=== PATIENT | female | born 2005 | race Caucasian/White ===

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

== ENCOUNTER 2023-03-07 19:24 | Emergency (ER) | payer SELFPAY ==
--- NOTE | ~2023-03-07 | XR_ITS ---
EXAMINATION: XR chest 2V Exam Date/Time: 03/07/2023 19:47 CDT HISTORY: chest pain Comparison: None. RESULT: Lines, tubes, and devices: None. Lungs and pleura: Diffuse mild mid and lower lung interstitial opacities, including mild cuffing and Jo B lines. No fissural fluid or effusion. No focal consolidation or pneumothorax. Cardiomediastinal silhouette: Stable. Other: No acute osseous or upper abdominal finding. Ovoid 3.8 cm soft tissue density in the right ax illa. IMPRESSION: Mild interstitial edema versus respiratory bronchiolitis. Possible right axillary mass, such as lymph adenopathy, correlate with physical exam. Reviewed, dictated and finalized at location K. IMPRESSION: Mild interstitial edema versus respiratory bronchiolitis. Possible right axilla ry mass, such as lymphadenopathy, correlate with physical exam.
--- NOTE | 2023-03-07 19:26 | ECG_ITS ---
Measurements Intervals [place] Rate: 73 P: 68 MS: 135 QRS: 82 QRSD: 94 T: 63 QT: 389 QTc: 430 Interpretive Statements SINUS RHYTHM INCOMPLETE RIGHT BUNDLE BRANCH BLOCK BORDERLINE ECG NO PREVIOUS ECG AVAILABLE FOR COMPARISON Electronically Signed On 03-07-2023 21:59:40 CDT by Garrett Fraga D.O.
[2023-03-07 19:35] VITALS: BP 107/66; PULSE 76; RESP 18; TEMP 36.9; O2SAT 100
--- NOTE | 2023-03-07 19:42 | PC.NURSE ---
Patient refused blood draw, states I don't want my blood drawn.
--- NOTE | 2023-03-07 20:06 | PC.NURSE ---
pts mom showed up to waiting room. pt decided she didn't need to be seen. pt left with mom.
== END 2023-03-07 20:10 | disposition left against medical advice (07) ==
LOC: ANHED 20:14
PROVIDERS: Emergency Provider Emergency Medicine; PCP Pediatrics
DX: R07.9 Chest pain, unspecified (principal)
CPT/HCPCS: 71046; 93005; 99199